=== PATIENT | female | born 1975 | race Caucasian/White ===

== ENCOUNTER 2016-06-21 00:40 | Emergency (ER) | payer OTHER ==
[~2016-06-21] VITALS: Ht 157.5 cm; Wt 83.5 kg
[2016-06-21 00:53] VITALS: BP 150/98
--- NOTE | 2016-06-21 01:01 | NUR ---
PT TAKEN TO BED 5
--- NOTE | 2016-06-21 01:08 | NUR ---
40Y F BIB FAMILY C/O OF RT EAR PAIN X4 DAYS NOW. PAIN IS 4/10 IN SCALE. NO DISTRESS NOTED.
--- NOTE | 2016-06-21 01:15 | NUR ---
Dr. Haddad evaluating patient at bedside.
[2016-06-21] MEDS ORDERED: IBUPROFEN 400 MG TAB PO ONE (01:20)
[2016-06-21 02:10] VITALS: BP 140/89
== END 2016-06-21 02:10 | disposition home or self-care (01) ==
LOC: MED 00:40
DX: H66.91 Otitis media, unspecified, right ear (principal); F17.210 Nicotine dependence, cigarettes, uncomplicated; F10.10 Alcohol abuse, uncomplicated